=== PATIENT | male | born 2000 | race Hispanic/Latino ===

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

== ENCOUNTER 2020-09-15 12:10 | Emergency (ER) | payer MEDICAID, OTHER ==
[2020-09-15] MEDS ORDERED: LIDOCAINE HCL 2% VISCOUS 15 ML UDCUP ONE (12:53)
== END 2020-09-15 13:24 | disposition home or self-care (01) ==
LOC: EDH 12:10
DX: B00.2 Herpesviral gingivostomatitis and pharyngotonsillitis (principal); Z87.891 Personal history of nicotine dependence

== ENCOUNTER 2022-08-05 00:43 | Emergency (ER) | payer OTHER ==
[~2022-08-05] VITALS: Ht 177.8 cm; Wt 131.5 kg
[2022-08-05 00:45] VITALS: BP 127/68
[2022-08-05 01:07] LABS: BASOPHILS % (AUTO) 0.5 % (0.0-5.0); EOSINOPHILS % (AUTO) 1.2 % (0.0-8.0); HEMATOCRIT 39.7 % (42-54); LYMPHOCYTES % (AUTO) 24.3 % (21.0-51.0); MEAN CORPUSCULAR HEMOGLOBIN 29.7 pg (27.0-33.0); MEAN CORPUSCULAR VOLUME 87.4 fL (79-99); MONOCYTES % (AUTO) 7.1 % (3.0-13.0); NEUTROPHILS % (AUTO) 66.7 % (40.0-77.0); PLATELET COUNT (AUTO) 301 K/uL (130-400); RED BLOOD CELL COUNT(AUTO) 4.54 MIL/uL (4.50-6.20); RED CELL DISTRIBUTION WIDTH 11.9 % (11.0-15.5); WHITE BLOOD COUNT (AUTO) 8.4 K/uL (4.8-10.8)
[2022-08-05 01:22] LABS: CREATININE 0.9 mg/dL (0.5-1.5); POTASSIUM 3.5 mmol/L (3.5-5.1)
[2022-08-05 01:27] LABS: TOTAL PROTEIN, SERUM 7.3 g/dL (6.0-8.3)
== END 2022-08-05 05:11 | disposition home or self-care (01) ==
LOC: EDH 00:43
DX: R07.89 Other chest pain (principal); R06.02 Shortness of breath; R11.0 Nausea
CPT/HCPCS: 36415; 71045; 80053; 84484; 85025; 93005

== ENCOUNTER 2022-12-06 08:22 | Emergency (ER) | payer OTHER ==
[~2022-12-06] VITALS: Ht 177.8 cm; Wt 127.9 kg
[2022-12-06 08:28] VITALS: BP 136/74
[2022-12-06] MEDS ORDERED: KETOROLAC 30MG VIAL (30MG/ML) IM STA (08:37)
[2022-12-06] MEDS ORDERED: ORPHENADRINE CITRATE 30 MG/ML ML IM STA (08:37)
[2022-12-06] MEDS ORDERED: METH-662 PO (09:37)
[2022-12-06] MEDS ORDERED: NAPR375T6 PO (09:37)
== END 2022-12-06 09:49 | disposition home or self-care (01) ==
LOC: EDH 08:22
DX: G89.29 Other chronic pain (principal); M54.50 Low back pain, unspecified
CPT/HCPCS: 99284; 72100; 96372; J1885; J2360